=== PATIENT | female | born 1990 | race Caucasian/White ===

== ENCOUNTER 2018-09-20 13:34 | Emergency (ER) | payer BC, SELFPAY ==
[2018-09-20 13:35] VITALS: BP 115/74; PULSE 73; RESP 16; TEMP 36.7; O2SAT 100; BMI 21.9
--- NOTE | 2018-09-20 13:52 | ED.VIS.GEN ---
History of Present Illness Chief Complaint: Abd Pain Informant: Patient Onset: Today, Hours - 0930 Context: Sudden Onset Timing: Continuous Quality: Pain Location: Epigastric left upper quadrant Current Severity: Mild Maximum Severity: Moderate Worsened by: Possibly food Relieved by: Nothing Associated Symptoms: Nausea and radiation to the back Narrative: Patient is a 28-year-old woman who presents with epigastric left upper quadrant pain that started at 0930. She had muffins at 0700. She reports similar episode September 08 day after she had eaten food that was rich and high in fat content as well as couple of glasses of wine. She denies history of cholelithiasis or pancreatitis. There is a strong paternal family history of cholelithiasis. She denies any constitutional symptoms. She denies any HEENT symptoms. She denies cardiac or respiratory symptoms. She denies change in frequency, caliber, color or consistency of stool. She denies urologic symptoms. She denies history of renal ureterolithiasis. Prior similar symptoms: Yes Recent Illness/Hospitalization: No - Past Medical History (1) No significant past medical history Status: Acute Past Medical History - Allergies and Home Meds Allergies/Adverse Reactions: Allergies No Known Allergies Allergy (Verified 09/20/18 13:38) Primary Care Physician: Sotero Ramos MD [Primary Care Provider] - Past Medical History: None Lives: Spouse/ Significant Other, With Family Smoking Status: Never smoker Alcohol: Occasional Drugs: None Review of Systems General: Denies: Chills, Fever, Sweats Eyes: Denies: Visual changes - bilaterally, Diplopia ENT: Denies: Rhinorrhea, Sore throat Cardiovascular: Denies: Chest pain, Palpitations Respiratory: Denies: Dyspnea, Cough, Dyspnea on exertion Gastrointestinal: Reports: Abdominal pain, Nausea. Denies: Vomiting, Diarrhea, Constipation, Melena, Hematochezia, -, - Genitourinary: Denies: Dysuria, Hematuria, Frequency Musculoskeletal: Denies: Back pain, Extremity Pain Skin: Denies: Rash, Wounds Neurological: Denies: Headache, Weakness, Numbness Hematologic: Denies: Easy bruising, Easy bleeding Allergy: Denies: Uticaria, Swelling of the mouth Physical Exam Vital Signs/Narrative: Vital Signs Temp Pulse Resp BP Pulse Ox 09/20/18 13:35 98.1 F 73 16 115/74 100 Inital Vital Signs reviewed: Yes General: Well nourished, Well developed, No Acute Distress Head: Normocephalic, Atraumatic Eyes: Perrl, EOMI. Negative for: Pale conjunctiva, Scleral icterus ENT: Moist mucous membranes, No rhinorrhea Neck: Supple, Nontender Cardiovascular: Regular rate, Regular rhythm, No murmurs Respiratory: No distress, CTA bilaterally, Chest nontender Abdomen: Soft, Nondistended, No masses, Tender, Guarding - Epigastric left upper quadrant, Hypoactive bowel sounds. Negative for: Nontender, Normal bowel sounds, Rebound tenderness, Hyperactive bowel sounds, Hepatomegaly, Splenomegaly, Mass, Pulsatile mass, Ventral hernia Rectal: Deferred Back: Nontender, Normal Inspection. Negative for: CVA tenderness Extremities: Nontender, No edema Skin: Normal color, No rash Neurological: Alert, Oriented x3, Cranial nerves II-XII grossly intact, Normal Strength, Normal Sensation Psychological: Normal affect, Normal Mood Diagnostic/Tx/Re-eval Laboratory Results 09/20/18 09/20/18 14:10 14:10 WBC 5.5 RBC 4.53 Hgb 13.0 Hct 39.6 MCV 87.4 MCH 28.7 MCHC 32.8 RDW Std Deviation 40.0 RDW Coeff of Jewel 12.5 Plt Count 274 MPV 10.3 Immature Gran % (Auto) 0.200 Neut % (Auto) 51.6 Lymph % (Auto) 37.2 [place] % (Auto) 9.4 Eos % (Auto) 0.7 Baso % (Auto) 0.9 Absolute Neuts (auto) 2.9 Absolute Lymphs (auto) 2.06 Absolute Nucleated RBC 0.00 Nucleated RBC % 0 Total Bilirubin 0.80 Direct Bilirubin 0.20 AST 25 ALT 29 Alkaline Phosphatase 58 Total Protein 7.5 Albumin 4.1 Globulin 3.4 Lipase 91 - Medical Decision Making With left upper quadrant pain and intolerance to greasy fried foods will obtain CBC, hepatic, lipase to evaluate for biliary disease and pancreatitis. Patient was medicated with 4 mg of Zofran for her nausea and 15 mg of Toradol IV push for abdominal discomfort. She was informed her results are negative. GI cocktail was administered with no effect. Suspect patient is having colicky pain. Will prescribe Bentyl. Patient was informed the exact cause is unknown. ED Disposition - Plan for ED Patient: Disposition: Home or Assisted Living Diagnosis: Acute bilateral upper abdominal pain Instructions: ABDOMINAL PAIN, Unknown Cause, (Female) Prescriptions: Dicyclomine HCl [Bentyl] 20 mg PO TIDAC #20 cap Prescription Printed Referrals: Sotero Ramos MD [Primary Care Provider] -
[2018-09-20] MEDS: Ondansetron 4 MG/2 ML Vial IV (14:20)
[2018-09-20] MEDS: Ketorolac 15 MG/ML Vial IV (14:20)
[2018-09-20 14:21] LABS: Absolute Lymphocyte Count 2.06 X10^3/uL (0.83-4.51); Absolute Neutrophil Count 2.9 X10^3/uL (2.0-7.7); Basophil# 0.05 X10^3/uL; Basophil% 0.9 % (0-1); Eosinophil# 0.04 X10^3/uL; Eosinophils% 0.7 % (0-5); Hematocrit 39.6 % (37-47); Lymphocyte # 2.06 X10^3/ul (4.0); Lymphocyte % 37.2 % (19-41); Mean Corp Hgb Conc 32.8 g/dL (32-36); Mean Corpuscular Hgb 28.7 pg (27.0-32.0); Mean Corpuscular Volume 87.4 fL (81-99); Mean Platelet Vol. 10.3 fl (6.2-12.0); Monocyte# 0.52 X10^3/uL; Monocyte% 9.4 % (0-10); NRBC Flagged by Analyzer 0 % (0-5); Neutrophil # 2.86 X10^3/uL (2.7-7.7); Neutrophil % 51.6 % (47-70); Platelet Count 274 K/mm3 (150-450); RBC Distribution Width CV 12.5 % (11.6-14.6); Red Blood Count 4.53 M/mm3 (4.2-5.4); White Blood Count 5.5 K/mm3 (4.4-11.0)
[2018-09-20 14:35] LABS: AST(SGOT) 25 U/L (15-37); Alanine Aminotransfer ALT/SGPT 29 U/L (13-56); Albumin, Serum 4.1 g/dL (3.2-5.0); Alkaline Phosphatase 58 U/L (45-117); Globulin 3.4 g/dL (2.2-4.2); Lipase 91 U/L (73-393); Protein, Total 7.5 g/dL (6.4-8.2)
[2018-09-20] MEDS: Mag Hydrox/Al Hydrox/Simeth 30 ML UDC PO (16:08)
[2018-09-20 16:14] VITALS: BP 137/62; PULSE 54; RESP 16; O2SAT 98
== END 2018-09-20 16:15 | disposition home or self-care (01) ==
PROVIDERS: Emergency Provider Emergency Medicine; Family Provider Family Medicine; PCP Family Medicine
DX: R10.11 Right upper quadrant pain (principal); R10.12 Left upper quadrant pain; R10.13 Epigastric pain; R11.0 Nausea
CPT/HCPCS: 80076; 83690; 85025; 96374; 96375; 99284; J7030; A4216; J2405

== ENCOUNTER → 2018-09-29 | Outpatient (CLI) | payer BC, SELFPAY ==
[2018-09-20 13:35] VITALS: BMI 21.9
--- NOTE | 2018-09-29 07:44 | US_ITS ---
STUDY: ABDOMINAL ULTRASOUND REASON FOR EXAM: Female, 28 years old. Right upper quadrant and epigastric pain TECHNIQUE: Transabdominal ultrasound was performed with real-time and static mccain scale imaging. TECHNICAL QUALITY: Adequate. COMPARISON: None. FINDINGS: Liver: The liver measures 16.2 cm. There is normal echogenicity of the liver. The bile ducts are within normal limits. There is hepatic color flow. The direction of portal flow is hepatopetal. There is no demonstrated mass lesion. Portal vein measurement: Gallbladder: Normal distended gallbladder. The gallbladder wall measures 3 mm. There is a negative sonographic Reyes's sign. There is no pericholecystic fluid. There are no gallstones. Common Bile Duct (C.B.D.): The common bile duct measures 2 mm. Pancreas: Normal size of the head, body and tail of the pancreas. There is normal echogenicity of the pancreas. There is no demonstrated pancreatic mass or cyst. Spleen: Normal size of the spleen. The spleen measures 11.7 cm. Right Kidney: Normal size of the right kidney. The right kidney measures 10.7 x 5.0 x 3.6 cm. Normal renal cortex. The right cortex measures 1.3 cm. There is no demonstrated renal mass or cyst. There is no right hydronephrosis. Left Kidney: Normal size of the left kidney. The left kidney measures 10.8 x 4.9 x 5.1 cm. Normal renal cortex. The left cortex measures 1.4 cm. There is no demonstrated renal mass or cyst. There is no left hydronephrosis there is an extrarenal pelvis. Aorta: Tapers normally I.V.C.: The IVC is patent. There is no ascites. US/Abdomen Complete IMPRESSION: Normal abdominal ultrasound examination. Electronically Signed: Jose J Jo MD at 9:13 EDT , Service support ,
== END | disposition home or self-care (01) ==
PROVIDERS: Family Provider Family Medicine; PCP Family Medicine; Referring Provider Family Medicine; Visit Provider Family Medicine
DX: R10.9 Unspecified abdominal pain (principal)
CPT/HCPCS: 76700

== ENCOUNTER → 2018-10-10 | Outpatient (CLI) | payer BC, SELFPAY ==
[2018-10-04 08:17] VITALS: BMI 21.9
--- NOTE | 2018-10-10 09:16 | NM_ITS ---
CLINICAL: 28-year-old female with reported history of postprandial right upper quadrant abdominal pain and nausea. RADIONUCLIDE HEPATOBILIARY SCINTIGRAPHY COMPARISON: Abdominal ultrasound report 09/29/2018 FINDINGS: Following the intravenous administration of 5.4 mCi of 99m Tc Mebrofenin, hepatobiliary images reveal: 1. Relatively prompt and homogeneous radiopharmaceutical concentration is noted by a normal sized liver. No parenchymal defects are identified. 2. Gallbladder activity is identified at 10 minutes post radiopharmaceutical administration. 3. Small intestinal tract is observed at 30 minutes following tracer injection. 4. Washout of the radiopharmaceutical by the hepatic parenchyma appears qualitatively normal. Cholecystokinin (0.02 ug/kg) was administered intravenously over a 30-minute period. The post CCK gallbladder ejection fraction calculated at 24 minutes following Cholecystokinin administration was noted to be < 5 % (normal greater than 35%). There appears to be scintigraphic evidence of post cholecystokinin duodenal-gastric reflux. SD/Hepatobilliary Img w/Pharm Int IMPRESSION: 1. ABNORMAL 99m Tc Mebrofenin hepatobiliary imaging examination with Cholecystokinin. A. A gallbladder ejection fraction calculated to be less than 35% following the administration of Cholecystokinin is consistent with the presence of functional hepatobiliary disease (gallbladder and/or sphincter of Oddi dyskinesia) and/or organic hepatobiliary disease (chronic acalculous cholecystitis and/or cystic duct syndrome) in patients with intermediate to high pretest probabilities of hepatobiliary illness. (Serafin Jalloh et al, Journal of Nuclear Medicine 32:1695, 1990). B. There is potential scintigraphic evidence of post CCK duodenal-gastric reflux. (Tera et al, Nucl Med [place] [employer] pg. 35, 1980). Electronically Signed: Rohit Trujillo DO at 23:19 EDT Tel , Service support ,
== END | disposition home or self-care (01) ==
LOC: NM 09:15
PROVIDERS: Family Provider Family Medicine; PCP Family Medicine; Referring Provider Surgery; Visit Provider Surgery
DX: R10.13 Epigastric pain (principal)
CPT/HCPCS: 78227; A9537; J2805

== ENCOUNTER 2018-10-13 08:34 | Day surgery (SDC) | payer BC, SELFPAY ==
[2018-10-12 13:32] VITALS: BMI 21.9
[2018-10-13] VITALS (7 sets, daily range): BP systolic 111–127; BP diastolic 64–93; PULSE 45–73; RESP 14–16; TEMP 36.2–37.1; O2SAT 95–100; BMI 22.3
--- NOTE | 2018-10-13 08:44 | EKG12_ITS ---
Test Reason : PREOP Blood Pressure : / mmHG Vent. Rate : 058 BPM Atrial Rate : 058 BPM P-R Int : 146 ms QRS Dur : 072 ms QT Int : 382 ms P-R-T Axes : 049 081 049 degrees QTc Int : 374 ms Sinus bradycardia with sinus arrhythmia Otherwise normal ECG No previous ECGs available Confirmed by ASHLEY CASILLAS ([id number]), news video editor DELORES SERRANO ([id number]) on 10/20/2018 2:43:11 PM Referred By: Ashley Rayo Confirmed By:ASHLEY CASILLAS
[2018-10-13 09:04] LABS: Internal QC Validated? YES +Cl - CLEAR BKGD; Pregnancy, Urine Negative Negative
[2018-10-13 09:16] LABS: International Normalized Ratio 1.1; Partial Thromboplast Time 29.5 Seconds (24.1-36.2); Prothrombin Time (Protime)PT. 13.5 SECONDS (11.7-14.9)
[2018-10-13] MEDS: Cefazolin 2 GM in 0.9% Normal Saline 100 ML IV (10:28)
--- NOTE | 2018-10-13 10:45 | GALL_PTH ---
PATIENT: VIKTOR BERRY [place] [facility] [id number] AGE/SX: 28/F ROOM: RE10/13/[address]: Dr. Myron Rayo MD : 1990 BED: DIS: 10/13/2018 SPEC #: [id number] RECD: 10/13/18 12:21 STATUS: TYRELL RELor #: [id number] [place]: 10/13/18 10:[address]: Myron Rayo DEPT: SURGICAL PATHOLOGY RECD BY: Vamshi Vegas ENTERED: 10/13/18 13:34 SP TYPE: MAINE TRIPATHI DR: Dr. Sotero Ramos MD Tissues: Gallbladder, NOS Procedures: Surgery Specimen Level III HEADER OPERATION: Laparoscopic cholecystectomy PRE-OP DIAGNOSIS: Biliary dyskinesia TISSUE SUBMITTED: Gallbladder MICROSCOPIC DIAGNOSIS Gallbladder, cholecystectomy: Chronic cholecystitis. No stones are identified in the container or in the gallbladder. SJ:archie 8/9/19 MICROSCOPIC DESCRIPTION Slides are reviewed. GROSS DESCRIPTION Received is one container labeled with the patient's name and designated gallbladder. The specimen consists of a gallbladder measuring 7 cm in length and up to 3.5 cm in diameter. The external surface is pink-jeffers, smooth and glistening for the most part. Focally it is granular, hemorrhagic and contains cautery artifact. The gallbladder contains green-yellow mucoid bile. No stones are identified in the container or in the gallbladder. The mucosa is bile-stained and without any mass lesions. The gallbladder wall measures up to 0.1 cm in thickness. Astro Technician sections from the gallbladder and the cystic duct are submitted in one cassette. / SJ:rg 10/13/18 TC:3 CPT: 36585
[2018-10-13] MEDS: Bupivacaine Mpf 0.5% 30 ML VIAL (11:02)
--- NOTE | 2018-10-13 11:02 | HP.PCM_ITS ---
History and Physical Date of Admission: 10/13/18 [facility] [address] [place] [address] OFFICE VISIT Date of Service: 10/12/18 MR#: [id number] Acct: [id number] Name: VIKTOR BERRY Rep #: [id number] : 1990 Provider: Myron rosenbaum MD Age/Sex: 28/F Location: [facility] Status: Signed Intake Vital Signs 10/12/18 Body Mass Index (BMI) 21.9 10/12/18 Height 5 ft 6 in 10/12/18 Weight: 143 lb 10/12/18 Body Mass Index (BMI) 23.1 10/12/18 Blood Pressure 139/88 H 10/12/18 Blood Pressure Location Rt brachial 10/12/18 Respiratory Rate 18 10/12/18 Pulse Rate 68 10/12/18 Pulse Source Monitor 10/12/18 Temperature 98.7 F 10/12/18 Temperature Source Oral 10/12/18 Pulse Ox 100 10/12/18 Oxygen Delivery Method room air Intake Visit Reasons: f/u hida Works Manager Required: No Is patient in pain?: No Allergies No Known Allergies Allergy (Verified 10/12/18 13:32) Medications NK 10/04/18 [History Confirmed 10/12/18] [facility] Medical History Abdominal pain (Acute) Surgical History No history of previous surgery (Acute) Family History Grandmother Breast cancer Grandfather Colon cancer Father Diabetes Sister Thyroid disorder Mother Multiple sclerosis Social History (Updated 10/12/18 @ 14:05 by Myron Rayo MD) Smoking Status: Never smoker HPI HPI HPI: VIKTOR BERRY, is a 28 F who presents to the office today for HPI HPI Surgical H&P: Yes HPI: VIKTOR BERRY, is a 28 F who presents to the office today for epigastric abdominal pain and nausea. Patient was seen in [facility] emergency department on 09/20/2018. At that point she was having epigastric and left upper quadrant abdominal pain and nausea. She reports similar episode September 4 day after she had eaten food that was rich and high in fat content as well as couple of glasses of wine. She denies history of cholelithiasis or pancreatitis. There is a strong paternal family history of cholelithiasis. She denies any constitutional symptoms. She denies any HEENT symptoms. She denies cardiac or respiratory symptoms. She denies change in frequency, caliber, color or consistency of stool. She denies urologic symptoms. She denies history of renal ureterolithiasis. Work-up included labs which were entirely normal with a normal lipase. Gallbladder ultrasound which showed no stones no thickened wall no sludge and no pericholecystic fluid. Her common bile duct was 2 mm in diameter. In addition she had a GI cocktail which really did not do anything for the discomfort. Patient underwent a HIDA scan with ejection fraction completed [facility] on 10/10/2018. This came back showing an ejection fraction of less than 5%. ROS General General: No weight change, appetite, fatigue, colon cancer, breast cancer or weakness HEENT HEENT: No difficulty swallowing, eye injury, eye surgery, swollen glands or hoarseness Endo Endocrine: No thyroid disease, diabetes mellitus, thyroid cancer, Hair loss, heat intolerance or cold intolerance Skin Skin: No rash or changing moles Breast Breast: No left breast lump, right breast lump, nipple discharge, breast pain, abnormal mammogram, abnormal US or breast enlargement Musc Musculoskeletal: No back problems, arthritis, rheumatoid arthritis, gout or joint pain Cardio Cardiovascular: No murmur, pacemaker, heart disease, atrial fibrillation, high blood pressure, heart attack, heart stent, palpitations, shortness of breat with exertion or chest pain Psych Psychiatric: No depression, anxiety or hearing voices Resp Respiratory: No shortness of breath, No sleep apnea, No cough, No COPD, No asthma, No emphysema, No wheezing Gastro Gastrointestinal: Yes abdominal pain, Yes nausea or vomiting, No diarrhea, No constipation, No blood in stool, No acid reflux, No hemorrhoids, No ulcers, No gallbladder problem, No black,tarry stools Bhaskar Hematologic: No blood thinners, No blood disorders, No bleeding, No anemia, No blood clots Neuro Neurologic: No weakness Exam Const General: no acute distress, well developed, well hydrated Orientation: oriented to person, oriented to place, oriented to time [facility] Head: normocephalic, atraumatic Ears: external ears normal Mouth: moist mucous membranes Eyes Sclera: sclerae normal Pupils: normal by confrontation Neck Neck: no lymphadenopathy noted Neck mass: No Thyroid: thyroid normal, symmetrical Chest Chest palpation & inspection: normal inspection of the chest Breast Palpation: No nipple discharge Resp Effort & Inspection: normal respiratory effort Auscultation: clear to auscultation bilaterally Percussion: percussion normal Cardio Rate: regular rate Rhythm: regular rhythm Heart Sounds: no murmurs GI Palpation: soft, no hepatosplenomegaly, no masses, tender Auscultation: normal bowel sounds Rectal Exam: other Other: Rectal exam deferred. Extrem General: normal to inspection, no clubbing, cyanosis or edema Assessment & Plan Problems 1. Biliary dyskinesia K82.8 2. Abdominal pain, RUQ R10.11 Plan Reviewed the anatomy with the patient and discussed the procedure: laparoscopic cholecystectomy with possible cholangiograms, possible open. Review risks including but not limited to bleeding, infection, hernia, bile leak, retained gallstones requiring another procedure ERCP- Endoscopic Retrograde Cholangiopancreatography, injury to another organ (bile ducts, common bile duct, small bowel, etc.) and conversion to an open procedure. All questions were answered. Coding Level of Care Code Off vis,est,level 2 Diagnoses Biliary dyskinesia K82.8 Abdominal pain, RUQ R10.11 10/12/18 1405 <Electronically signed by Myron arroyo MD> Date _ Myron Rayo MD Cosigner Signature: Date (if applicable) CC: Sotero Ramos MD ~ I have re-examined the patient. There are no clinical changes since date of exam.
--- NOTE | 2018-10-13 11:03 | OP.PCM_ITS ---
Problem List (1) Biliary dyskinesia Status: Acute (2) Right upper quadrant abdominal pain Status: Acute Report of Operation Date of Procedure: 10/13/18 Pre-Operative Diagnosis: 1. Biliary dyskinesia. 2. Right upper quadrant abdominal pain Post-Operative Diagnosis: Same Surgery/Procedure Performed:: Laparoscopic cholecystectomy Type of Anesthesia:: General Anesthesiologist: Ankush Castaneda Specimen's removed: Gallbladder Estimated Blood Loss (mL): < 25 cc Fluids Replaced: 1 L LR Description of Procedure: Patient was brought in the operating room. Placed in supine position. Under excellent general trach intubation the abdomen was sterilely prepped draped in usual fashion. Local was injected infra umbilically. Dissection was carried down to the fascia. The fascia was grasped with a Ruddy. Varies needle was elvis sabrina inside the abdomen. The abdomen was insufflated to 15 torr. A 10/12 trocar was placed without difficulty. Patient was placed in the head up and rotated to the left position. A subxiphoid #5 trocar was placed, inferior to this another #5 trocar was placed, laterally a #5 trocar was placed. All these under direct visualization without injury to underlying structures. Fundus of the gallblad tracy was grasped and retracted in a cephalad direction. Moderate amount of adhesions were taken off of the gallbladder itself. I dissected out the cystic duct. I placed hemoclips proximally distally and ligated the duct. Identified the cystic artery. I placed hemoclips proximally distally and ligated the artery. Deliver the gallbladder from the gallbladder bed with use of electrocautery. I had no spillage of bile. I had excellent hemostasis on the liver bed. I placed a specimen specimen bag and delivered through the umbilical port. I reinspected the abdomen good hemostasis was noted. Remove the trochars under direct visualization good hemostasis was noted. To close the fascia the umbilical port with a [id number] stitch of 0 Vicryl. Skin incisions were closed with subcuticular stitches of 4-0 Monocryl. Steri-Strips were applied. Sterile dressings were applied. The patient tolerated the procedure well. - Admit VTE Documentation VTE Present on Admission: No VTE Mechan Device Prophylaxis: SCD's VTE Pharm Prophylaxis ordered?: No Reason prophylaxis not ordered:: Treatment Not Indicated
--- NOTE | 2018-10-13 11:07 | DCINST_ITS ---
Discharge Diet: Light diet - advance as tolerated Discharge Activity: May Not Drive - for 2-3 days or while taking narcotic pain medications., - - Do not drive, work heavy equipment or sign legal documents for 24 hours. May shower in (days): 1 - with the bandage in place. Additional Activity Instructions:: Pain medication may cause nausea. You should typically eat light foods as you take your pain medications. Pain medication may also cause constipation. If this is a problem for you, please discuss with your doctor. Call your doctor if your incision/area has: Continuous Slow Oozing, Sudden Increased Bleeding, Increased Pain/ Swelling, Increased Redness, Foul Smelling Discharge Call your doctor if you observe: Fever of 101 or Higher Suture Line Care: Avoid Pulling/Pushing, Avoid Pinching/Bending Additional Dressing/Incision Instructions:: Leave operative bandaids on for 2 days. When you remove dressing, leave Steri-Strips on until your follow-up appointment, or until the Steri-Strips fall off on their own. Allergies/Adverse Reactions: Allergies No Known Allergies Allergy (Verified 10/12/18 15:03) Medications to take at Discharge Oxycodone HCl/Acetaminophen [Percocet 5/325] 1 - 2 tab PO Q4H PRN PRN 6 Days #30 tab 10/13/18 The following prescriptions were given: Oxycodone HCl/Acetaminophen [Percocet 5/325] 1 - 2 tab PO Q4H PRN PRN 6 Days #30 tab PRN Reason: Pain Prescription Printed Primary Care Physician: Sotero Ramos MD [Primary Care Provider] - Test Results: Test results from this visit will be discussed in further detail at your follow- up appointment, if applicable. Please Follow Up With: Myron Rayo MD - Please call [phone] to schedule an appointment. When: 7 days after your surgery.
[2018-10-13] MEDS: oxyCODONE 5 MG Tablet PO (12:24)
[2018-10-13] MEDS: Acetaminophen 325 MG Tablet PO (12:25)
== END 2018-10-13 13:29 | disposition home or self-care (01) ==
LOC: SDC 08:35 → AC 08:36
PROVIDERS: Anesthesiology; Family Provider Family Medicine; PCP Family Medicine; Referring Provider Surgery; Visit Provider Surgery
PROC: (CPT 47610; principal; 2018-10-13 10:30)
DX: K81.1 Chronic cholecystitis (principal)
CPT/HCPCS: 47562; 36415; 81025; 85610; 85730; 88304; 93005; J7120; J2405

== ENCOUNTER → 2020-11-12 | Outpatient (CLI) | payer OTHER, SELFPAY | END | disposition home or self-care (01) | PROVIDERS: Visit Provider Family Medicine | DX: B34.9 Viral infection, unspecified (principal) | CPT/HCPCS: 87635; U0005; U0003 ==

== ENCOUNTER → 2024-05-18 | Outpatient (CLI) | payer BC, SELFPAY ==
[2024-05-18 13:29] LABS: Anion Gap 11 (5-15); BUN 11 mg/dL (4-19); BUN/Creat Ratio 13.9 RATIO (10-20); Calcium,Total 9.5 mg/dL (7.6-11.0); Carbon Dioxide 23.5 mmol/L (21.0-32.0); Chloride 104 mmol/L (98-108); Cholesterol 150 mg/dL (<=200); Creatinine, Serum 0.75 mg/dL (0.70-1.20); EST Glomerular Filtration Rate 107 (>60); Glucose 89 mg/dL (70-99); High Density Lipoprotein 89 mg/dL; Low Density Lipoprotein Calc. 54 mg/dL; Potassium 4.3 mmol/L (3.3-5.1); Sodium Level 139 mmol/L (133-145); Triglycerides 32 mg/dL; Very Low Density Lipoprotein 6 mg/dL (5-40); cholesterol:hdl ratio screen 1.68
[2024-05-18 13:34] LABS: Vitamin D,25 Hydroxy 19.8 ng/mL (30-100)
== END | disposition home or self-care (01) ==
PROVIDERS: PCP Family Medicine; Referring Provider Family Medicine; Visit Provider Family Medicine
DX: Z00.00 Encounter for general adult medical examination without abnormal findings (principal)
CPT/HCPCS: 36415; 80048; 80061; 82306